=== PATIENT | male | born 2000 | race Caucasian/White ===

== ENCOUNTER 2023-03-31 10:07 | Outpatient (CLI) | payer OTHER, SELFPAY ==
[2023-03-31 10:44] LABS: Appearance Urine Clear (Clear); Bilirubin Urine Negative (Negative); Blood Urine Negative (Negative); Color Urine Yellow (Yellow); Glucose Urine UA Negative (Negative); Ketones Urine Negative (Negative); Leukocyte Esterase Ur Negative LEU/UL (NEGATIVE); Nitrate Urine Negative (Negative); Protein Urine Negative (Negative); Specific Grav Ur 1.009 (1.001-1.035); Urobilinogen Urine 0.2 mg/dL (<2.0)
[2023-03-31 10:56] LABS: Add Urine Microscopic? NO
[2023-03-31 11:18] LABS: Basophils Percent Auto 0.4 % (0.2-1.2); Eosinophils Absolute Auto 0.3 K/mm3 (0-0.3); Eosinophils Percent Auto 6.3 % (0-4.4); Hematocrit 45.9 % (42.0-52.0); Hemoglobin 15.2 g/dL (14.0-18.0); Immature Granulocyte Absolute 0.02 K/mm3 (0.00-0.031); Immature Granulocyte Percent A 0.4 % (0-0.5); Lymphocytes Absolute Auto 1.53 K/mm3 (0.9-3.2); Lymphocytes Percent Auto 33.5 % (18.3-44.2); Mean Corpuscular HGB Conc 33.1 g/dl (32-36); Mean Corpuscular Hemoglobin 29.5 pg (26-34); Mean Platelet Volume 10.1 fl (7.4-10.4); Monocytes Absolute Auto 0.3 K/mm3 (0.1-0.6); Monocytes Percent Auto 6.8 % (2.6-8.5); Neutrophils Absolute Auto 2.4 K/mm3 (1.3-6.7); Neutrophils Percent Auto 52.6 % (45.5-73.1); Platelet Count Result 213 k/mm3 (150-375); Red Blood Count 5.16 M/mm3 (4.6-6.20); Red Cell Distribution Width 11.7 % (11.5-14.5); White Blood Count 4.6 K/mm3 (4.5-10.0)
[2023-03-31 11:27] LABS: Alanine Aminotransferase 24 U/L (6-50); Albumin Level 5.1 g/dL (3.5-5.1); Alkaline Phosphatase 59 U/L (38-126); Anion Gap 9 mmol/L (8-16); Aspartate Amino Transferase 26 U/L (17-59); Bilirubin,Total 1.4 mg/dL (0.2-1.3); Blood Urea Nitrogen 16 mg/dL (9-20); Calcium 10.1 mg/dL (8.4-10.2); Carbon Dioxide 31 mmol/L (22-30); Chloride 103 mmol/L (98-107); Cholesterol 148 mg/dL (0-200); Estimated Glomerular Filt Rate > 60; Glucose 85 mg/dL (65-110); HDL Direct 59 mg/dL; Potassium 4.4 mmol/L (3.4-5.0); Sodium 143 mmol/L (137-145); Triglycerides 78 mg/dL (<150)
[2023-03-31 11:37] LABS: LDL Cholesterol Direct 71 mg/dL
== END 2023-03-31 10:08 | disposition home or self-care (01) ==
LOC: ANHLAB 10:09
PROVIDERS: PCP Nurse Practitioner Family; Visit Provider Nurse Practitioner Family
DX: Z13.0 Encounter for screening for diseases of the blood and blood-forming organs and certain disorders involving the immune mechanism (principal); Z13.228 Encounter for screening for other metabolic disorders; Z13.220 Encounter for screening for lipoid disorders; N45.1 Epididymitis
CPT/HCPCS: 36415; 80053; 80061; 81003; 85025; 87086

== ENCOUNTER → 2023-04-03 10:40 | Outpatient (CLI) | payer OTHER, SELFPAY ==
--- NOTE | ~2023-04-03 | US_ITS ---
EXAMINATION: US scrotum doppler DATE: 04/03/2023 11:08 INDICATION: Epididymitis, pain TECHNIQUE: Testicular sonogram utilizing grayscale and Doppler COMPARISON: None. FINDINGS: The right testis measures 4.3 x 2.4 x 3.5 cm. The left testis measures 4.6 x 2.4 x 3.3 cm. There is normal vascular flow to both testes. The right epididymis is normal with normal vascular bhaskar w. The left epididymis is mildly enlarged compared to the right. There are small cystic areas of the left epididymis. No definite abnormal associated vascularity is identified. There is a small left hyd rocele. IMPRESSION: 1. Mildly complex and enlarged left epididymis when compared to the right without increased vasculari ty. Findings could reflect cysts or spermatoceles are less likely infection. Clinical follow-up is re commended necessary. Reviewed, dictated and finalized at location B. DRIVER IMPRESSION: 1. Mildly complex and enlarged left epididymis when compared to the right witho ut increased vascularity. Findings could reflect cysts or spermatoceles are les s likely infection. Clinical follow-up is recommended necessary.
== END ==
PROVIDERS: PCP Nurse Practitioner Family; Visit Provider Nurse Practitioner Family
DX: N45.1 Epididymitis (principal)
CPT/HCPCS: 76870; 93976

== ENCOUNTER 2024-03-26 11:09 | Outpatient (CLI) | payer OTHER, SELFPAY ==
[2024-03-26 11:55] LABS: Hematocrit 46.2 % (42.0-52.0); Hemoglobin 15.9 g/dL (14.0-18.0); Mean Corpuscular HGB Conc 34.4 g/dl (32-36); Mean Corpuscular Hemoglobin 30.2 pg (26-34); Mean Corpuscular Volume 87.8 fl (80-100); Mean Platelet Volume 10.1 fl (7.4-10.4); Platelet Count Result 207 k/mm3 (150-375); Red Blood Count 5.26 M/mm3 (4.6-6.20); Red Cell Distribution Width 11.7 % (11.5-14.5); White Blood Count 4.6 K/mm3 (4.5-10.0)
[2024-03-26 11:57] LABS: Add Urine Microscopic? NO; Appearance Urine Clear (Clear); Bilirubin Urine Negative (Negative); Blood Urine Negative (Negative); Color Urine Yellow (Yellow); Glucose Urine UA Negative (Negative); Ketones Urine Negative (Negative); Leukocyte Esterase Ur Negative LEU/UL (Negative); Nitrate Urine Negative (Negative); Protein Urine Negative (Negative); Specific Grav Ur 1.007 (1.001-1.035); Urobilinogen Urine 0.2 mg/dL (<2.0); pH Urine 7.5 (5.0-9.0)
[2024-03-26 12:12] LABS: Alanine Aminotransferase 31 U/L (6-50); Albumin Level 5.2 g/dL (3.5-5.1); Alkaline Phosphatase 68 U/L (38-126); Anion Gap 6 mmol/L (4-12); Aspartate Amino Transferase 31 U/L (17-59); Bilirubin,Total 1.9 mg/dL (0.2-1.3); Blood Urea Nitrogen 13 mg/dL (9-20); Calcium 9.9 mg/dL (8.4-10.2); Carbon Dioxide 30 mmol/L (22-30); Chloride 102 mmol/L (98-107); Estimated Glomerular Filt Rate > 60; Glucose 94 mg/dL (65-110); Potassium 4.5 mmol/L (3.4-5.0); Sodium 138 mmol/L (137-145)
[2024-03-26 12:34] LABS: Hemoglobin A1C 5.4 % (<5.7)
== END 2024-03-26 11:10 | disposition home or self-care (01) ==
LOC: ANHLAB 11:11
PROVIDERS: PCP Nurse Practitioner Family; Visit Provider Nurse Practitioner Family
DX: R10.9 Unspecified abdominal pain (principal); Z00.00 Encounter for general adult medical examination without abnormal findings; M25.519 Pain in unspecified shoulder; M54.9 Dorsalgia, unspecified; Z13.0 Encounter for screening for diseases of the blood and blood-forming organs and certain disorders involving the immune mechanism; Z68.29 Body mass index [BMI] 29.0-29.9, adult; Z13.1 Encounter for screening for diabetes mellitus; Z13.29 Encounter for screening for other suspected endocrine disorder; R00.1 Bradycardia, unspecified; Z13.228 Encounter for screening for other metabolic disorders
CPT/HCPCS: 36415; 80053; 81003; 83036; 84443; 85027; 87086

== ENCOUNTER 2024-05-14 12:47 | Outpatient (CLI) | payer OTHER, SELFPAY ==
--- OUTSIDE RECORDS SUMMARY | 2024-05-14 13:23 | XMS_ITS | Continuity of Care Document ---
Author Organization [facility] Address [address] [place] [address] Phone Care Team Providers Care Paper Folding Machine Operator Name Role Phone Walter Marin MD Unavailable Unavailable Allergies, Adverse Reactions, Alerts Substance Reaction Status Criticality No Known allergies Medications Medication Instructions Dosage Effective Dates (start - stop) Status Comments fluticasone 50 mcg/actuation Nasal Paden, Susp spray 1 - 2 spray (50MCG) by intranasal route every day in each nostril 50 MCG - Active VENTOLIN HFA 90 MCG INHALER inhale 2 puff by inhalation route 4 - 6 hours as needed - Active cetirizine 10 mg Tab take 1 tablet (10MG) by oral route every day 10 MG - Active AEROCHAMBER WITH FLOWSIGNAL E 0 DIRECTE 50 MCG - Active VENTOLIN HFA 90 MCG INHALER inhale 2 puff by inhalation route 4 - 6 hours as needed - No Longer Active NASONEX 50 MCG NASAL SPRAY spray 1 spray by intranasal route every day in each nostril 1 spray - No Longer Active Advance Directives Directive Yes / No Effective Date File Name Resuscitation Not Answered N/A N/A Life Support Not Answered N/A N/A Intubation Not Answered N/A N/A Antibiotics Not Answered N/A N/A IV Fluid Support Not Answered N/A N/A Tube Feed Not Answered N/A N/A Other Directive N/A N/A WARNING:The information contained in this section is historical and is provided for information only and does not constitute a legal document or any assurance that the information is still accurate. Please verify the information with the reardon of the legal document before using it for clinical purposes. Encounters Encounter Description Practice Location Reason(s) For Visit Diagnoses Date Provider Providers Copied on Encounter [facility], [address], [place], [place], [id number] , tel: [phone] [facility] asthma (chief complaint) rhinitis (chief complaint) INTRINSIC ASTHMA, UNSPECIFIEDChroni c rhinitis 2 Tomas Watson. [address], [id number], . tel:[phone] Referring Provider: Susana Graves [address] [place] [address], [place], [place], [facility]. [phone] [facility], [address], [place], [place], [id number] , tel: [phone] [facility] INTRINSIC ASTHMA, UNSPECIFIEDNON-AL LERGIC RHINITISNEED FOR PROPHYLACTIC VACCINATION AND INOCULATION, INFLUENZA 1 Tomas Watson. [address] [place] [address], [id number], . tel:[phone] Referring Provider: Susana Graves [address] [place] [address], [place], [address]. tel:[phone] [facility], [address], [place], [place], [id number] , tel: [phone] [facility] INTRINSIC ASTHMA, UNSPECIFIEDNASAL & SINUS DIS NEC 1 Tomas Watson. [address], [id number], [place]. [phone] Referring Provider: Filomena Agarwal[address] [place] [address], [place], [address]. tel:[phone] [facility], [address], [place], [place], [id number] , tel: [phone] Conversion Department No Information 1 Conversion Doctor. [facility] Rehana Lemus, [place], [address], [place]. [facility], [address], [place], [place], [id number] , tel: [phone] [facility] INT ASTHMA W (AC) EXAC 0 Tomas Watson. [address] [place] [address], [id number], . [phone] [facility], [address], [place], [place], [id number] , tel: [phone] [facility] INTRINSIC ASTHMA NOS 0 Tomas Watson. [address], [id number], . tel:[phone] Family History Family Member Type Diagnosis Age At Onset No Information Immunizations Vaccine Date Status Comments Flu (split) (3 yrs or older) administered Source: New Immunization Record Flu (split) (3 yrs or older) administered Source: New Immunization Record Payers Payer name Insurance type Covered alliance party ID Taylor orozco(s) [facility] [id number] Social History Type Description Quantity Date Captured Comments Alcohol Use Details Unknown Caffeine Use Details Unknown Tobacco Use Status No Information Smoking Status Never smoker Sex Male Vital Signs Date / Time: Height Weight BMI Pulse Rate Blood Pressure Temperature Respiratory Rate Body Surface Area Head Circumference Head Circ. Percentile Wt./Carlos Manuel. Percentile BMI percentile Pulse Ox Inhaled Ox 4:31 PM 65.00 in 117.00 lbs 19.4 7 kg/m eter (2) 118/72 mm[Hg] 62 Chief Complaint And Reason For Visit From encounter dated '01/30/2012 16:00'. asthma (chief complaint) rhinitis (chief complaint) Reason For Referral Reason For Referral No Information History Of Present Illness Encounter Date Complaint History Of Prese nt Illness No Information Functional Status Date Functional Assessmen t No Information Instructions Date Instruction Additional Infor mation No Information Assessments Type Assessment Date No Information Patient Care Teams Name Effective Dates (start - stop) Status Members No Information
--- OUTSIDE RECORDS SUMMARY | 2024-05-14 13:23 | XMS_ITS | Patient Health Summary ---
Author Organization [facility] Address [address] [facility] [place] [address] Care Team Providers Care Intelligence Intern Name Role Phone Lynette Alberto MD Unavailable [phone] Lynette Alberto MD Primary Care Provider [phone] [facility],non-owned Affiliates and Associated Physician Practices is amultiple site organization consisting of ambulatory clinics and hospital sitesin [place] and [place]. This disclosure is being madepursuant to the Care Everywhere program and may not contain all information available regarding this patient. Last updated 18.[facility] Allergies * Augmentin(Diarrhea) * Ceftin(VOMITING) Medications * Be aware that medications may not be up to date on this document. Alwaysverify current medications with the patient. * albuterol (PROVENTIL; VENTOLIN) 90 MCG/ACT inhaler Inhale 2 Puffs by mouth every 6 hours as needed Reported on 05/30/2016 * Cetirizine HCl (ZYRTEC PO) * adapalene-benzoyl peroxide (EPIDUO) 0.1-2.5 % gel(Started 04/19/2018) Apply to affected area at bedtime 2 refills remaining * doxycycline hyclate (PERIOSTAT) 20 MG tablet(Started 04/19/2018) Take 1 tablet by mouth 2 times daily 2 refills remaining * benzoyl peroxide-erythromycin (BENZAMYCIN) 5-3 % gel(Started 04/20/2018) Apply to affected area 2 times daily 1 refill remaining Active Problems Problem Noted Date Diagnosed Date Asthma, moderate persistent 10/19/2010 Allergic rhinitis 08/18/2010 Acne 08/18/2010 Resolved Problems Problem Noted Date Diagnosed Date Resolved Date Acute otitis media 08/18/2010 1 Immunizations * DTaP VACCINE IM (6wk-6yrs)(Given 08/11/2003, 05/25/2000, 05/25/1999, 03/23/1999, 01/19/1999) * HEP A PEDS 2 DOSE(Given 09/21/2009, 11/20/2006) * HEP B VACCINE, PED/ADOL(Given 05/25/2000, 08/24/1999, 05/25/1999) * HIB BOOSTER(Given 05/25/2000, 05/25/1999, 03/23/1999, 01/19/1999) * Human Papilloma Virus Quadrivalent Vaccine(Given 11/08/2013, 12/08/2012, 10/01/2012) * INFLUENZA VACCINE, QUADR. (FLUZONE; FLULAVAL; FLUARIX; AFLURIA QUADRIVALENT; 6MO+), 0.5 ML (IIV4)(Given 02/22/2013) * MENINGOCOCCAL CONJUGATE (MCV4P)(Given 09/30/2015, 10/01/2012) * MMR(Given 08/11/2003, 11/24/1999) * POLIO IPV(Given 08/11/2003, 02/24/2000, 03/23/1999, 01/19/1999) * PPD(Given 08/11/2003, 11/24/1999) * TDAP (7yrs+)(Given 09/21/2009) * VARICELLA(Given 11/20/2006, 02/24/2000) Social History Tobacco Use Types Packs/Day Years Used Date Smoking Tobacco: Never Smokeless Tobacco: Never Alcohol Use Standard Drinks/Week Comments Not Asked 0 (1 standard drink = 0.6 oz pur e alcohol) Sex and Gender Information Value Date Recorded Sex Assigned at Not on file Gender Identity Not on file Sexual Orientation Not on file Last Filed Vital Signs Vital Sign Reading Time Taken Comments Blood Pressure 114/76 09/30/2015 9:27 AM CDT Pulse 54 09/30/2015 9:27 AM CDT Temperature 36.2 ??C (97.2 ??F) 04/19/2018 10:[address] Respiratory Rate 12 06/21/2011 8:51 AM VOICE SYSTEMS ENGINEER Oxygen Saturation 98% 05/31/2012 9:53 AM VOICE SYSTEMS ENGINEER Inhaled Oxygen Concentration - - Weight 87.5 kg (193 lb) 04/19/2018 10:27 AM VOICE SYSTEMS ENGINEER Height 174 cm (5' 8.5 ) 09/30/2015 9:27 AM CDT Body Mass Index - - Procedures * PATHOLOGY REPORT(Performed 08/30/2017) * XR ANKLE LEFT 3VW OR MORE(Performed 07/21/2012) * XR FEMUR LEFT 2VW(Performed 11/07/2011) Performed for Thigh pain * EVENT MONITOR(Performed 07/28/2011) * XR HAND RIGHT 3VW OR MORE(Performed 07/11/2011) Performed for Finger fracture, right * XR HAND RIGHT 2VW(Performed 06/28/2011) Performed for Injury of third finger, right * ECHO CONSULT - PEDIATRIC(Performed 06/21/2011) Performed for Palpitations * EKG 12-LEAD(Performed 05/25/2011) Performed for Chest pain at rest, Palpitations * XR WRIST LEFT 3VW OR MORE(Performed 02/01/2011) * CULTURE THROAT(Performed 07/15/2010) * INFLUENZA A+B - POINT OF CARE (AMB)(Performed 07/15/2010) Performed for Influenza * STREP A SCREEN - POINT OF CARE (AMB)(Performed 07/15/2010) Performed for Sore throat * URINALYSIS - POINT OF CARE(Performed 09/21/2009) Performed for Routine Infant or Child Health Check Results * PATHOLOGY REPORT (08/30/2017) Ge Burnham MD LAB - PATHOLOGY/C YTOLOGY ORDERABLES * XR ANKLE 3+ VW LEFT (07/21/2012) Anatomical Region Laterality Modality Lower Extremity Other Emergency Physician DIAGNOSTIC IMAGING O RDERABLES * XR FEMUR 2 VW LEFT (11/07/2011) Anatomical Region Laterality Modality Lower Extremity Other Lynette Alberto MD DIAGNOSTIC IMAGING O RDERABLES * EVENT MONITOR (07/28/2011) Charlie Gann MD CARDIAC SERVIC ES ORDERABLES * XR HAND RIGHT 3+ VW MP (07/11/2011) Anatomical Region Laterality Modality Wrist / Hand Other Lynette Alberto MD DIAGNOSTIC IMAGING O RDERABLES * XR HAND 2 VW RIGHT (06/28/2011) Anatomical Region Laterality Modality Wrist / Hand Other Lynette Alberto MD DIAGNOSTIC IMAGING O RDERABLES * ECHO CONSULT - PEDIATRIC (06/21/2011 9:16 AM VOICE SYSTEMS ENGINEER) 06/21/2011 9:16 AM VOICE SYSTEMS ENGINEER Narrative [facility] - 06/21/2011 10:03 AM VOICE SYSTEMS ENGINEER , Transthoracic Echocardiogram 2D, M-mode, Doppler, and Color Doppler Name: JESSICA STEEL MR #: [id number] Study date: 06/21/2011 Age: 10 years 10 years : 2000 Gender: Male Ht: 63.4 in 63.4 in / 161 cm 161 cm Wt: 112.2 lb 112.2 lb / 51 kg 51 kg BSA: 1.52 m?? 1.52 m?? HR: BP: / age: TEOFILO: Maternal age: MIRROR MACHINE FEEDER: ??Charlie Gann MD PEDIATRIC ECHO CHIEF INFORMATION OFFICER: ??MAT Ybarra History: Signs/symptoms include palpitations and murmur. Procedure: The procedure was performed in the echo lab. Anatomic relationships: Visceral situs: normal. Left sided cardiac apex (levocardia). Normal atrial situs (atrial situs solitus). Concordant atrioventricular alignment. Ventricular d-loop. Normal infundibular anatomy. Concordant ventriculoarterial connection. Normally related great vessels. Systemic veins: SVC: The superior vena cava and left innominate vein appeared of normal caliber, with normal flow. IVC: The inferior vena cava was normal in size and course. IVC Doppler: The flow pattern was normal. Pulmonary veins: The pulmonary veins drained normally to the left atrium. Doppler: Doppler flow pattern was normal in the pulmonary vein(s). Right atrium: Size was normal. Left atrium: Size was normal. Atrial septum: No defect or patent foramen ovale was identified. Tricuspid valve: The valve structure was normal. Doppler: The transtricuspid velocity was within the normal range. There was no evidence for tricuspid stenosis. There was trivial regurgitation. Mitral valve: Valve structure was normal. There is no mitral valve prolapse. Doppler: The transmitral velocity was within the normal range. There was no evidence for stenosis. There was no regurgitation. Right ventricle: The cavity size was normal. Wall thickness was normal. Systolic function was normal. RV outflow tract: There was no obstruction. Left ventricle: The cavity size was normal. Wall thickness was normal. Systolic function was normal. There were no regional wall motion abnormalities. Doppler: Left ventricular diastolic function parameters were normal. LV outflow tract: There was no outflow obstruction. Ventricular septum: Thickness was normal. The septum was intact. Pulmonic valve: Leaflets exhibited normal thickness and normal cuspal separation. Doppler: The transpulmonic velocity was within the normal range. Aortic valve: The valve was trileaflet. Leaflets exhibited normal thickness and normal cuspal separation. Doppler: Transaortic velocity was within the normal range. There was no stenosis. There was no regurgitation. Pulmonary artery: The main pulmonary artery was normal, with normal-sized, confluent proximal branch pulmonary arteries. Aorta: There was a normal-sized aortic arch with normal brachiocephalic branching. The root was normal in size. The ascending aorta size was normal. Coronary arteries: The size and course of the left main, proximal left anterior descending, and proximal right coronary arteries were normal. Right coronary artery: Flow was normal. Left main coronary artery: Flow was normal. Left anterior descending: Flow was normal. Extracardiac shunting: No ductal shunt was detected by Doppler. Pericardium: There was no pericardial effusion. The pericardium was normal in appearance. Impressions: - ??Diagnoses: Normal echocardiogram. Prepared and signed by Charlie Gann MD Signed 06/21/2011 10:06:16 System measurement tables MM %FS: 38.9 % Ao Diam: 24.5 mm EDV(Teich): 121.2 ml EF(Teich): 69.1 % ESV(Teich): 37.5 ml IVSd: 6.9 mm IVSs: 10.1 mm LA Diam: 28.2 mm LA/Ao: 1.2 LVIDd: 50.5 mm LVIDs: 30.9 mm LVPWd: 6.9 mm LVPWs: 12.8 mm LVd Mass: 129.5 g LVd Mass (ASE): 115.1 g LVd Mass Ind (ASE): 75.7 g/m2 LVd Mass Index: 85.2 g/m2 LVs Mass: 117.1 g LVs Mass (ASE): 105.2 g LVs Mass Ind (ASE): 69.2 g/m2 LVs Mass Index: 77.1 g/m2 SV(Teich): 83.7 ml Procedure Note 06/21/2011 , Transthoracic Echocardiogram 2D, M-mode, Doppler, and Color Doppler Name: JESSICA STEEL MR #: [id number] Study date: 06/21/2011 Age: 10 years 10 years : 2000 Gender: Male Ht: 63.4 in 63.4 in / 161 cm 161 cm Wt: 112.2 lb 112.2 lb / 51 kg 51 kg BSA: 1.52 m?? 1.52 m?? HR: BP: / age: TEOFILO: Maternal age: MIRROR MACHINE FEEDER: Charlie Gann MD PEDIATRIC ECHO CHIEF INFORMATION OFFICER: MAT Ybarra History: Signs/symptoms include palpitations and murmur. Procedure: The procedure was performed in the echo lab. Anatomic relationships: Visceral situs: normal. Left sided cardiac apex (levocardia). Normal atrial situs (atrial situs solitus). Concordant atrioventricular alignment. Ventricular d-loop. Normal infundibular anatomy. Concordant ventriculoarterial connection. Normally related great vessels. Systemic veins: SVC: The superior vena cava and left innominate vein appeared of normal caliber, with normal flow. IVC: The inferior vena cava was normal in size and course. IVC Doppler: The flow pattern was normal. Pulmonary veins: The pulmonary veins drained normally to the left atrium. Doppler: Doppler flow pattern was normal in the pulmonary vein(s). Right atrium: Size was normal. Left atrium: Size was normal. Atrial septum: No defect or patent foramen ovale was identified. Tricuspid valve: The valve structure was normal. Doppler: The transtricuspid velocity was within the normal range. There was no evidence for tricuspid stenosis. There was trivial regurgitation. Mitral valve: Valve structure was normal. There is no mitral valve prolapse. Doppler: The transmitral velocity was within the normal range. There was no evidence for stenosis. There was no regurgitation. Right ventricle: The cavity size was normal. Wall thickness was normal. Systolic function was normal. RV outflow tract: There was no obstruction. Left ventricle: The cavity size was normal. Wall thickness was normal. Systolic function was normal. There were no regional wall motion abnormalities. Doppler: Left ventricular diastolic function parameters were normal. LV outflow tract: There was no outflow obstruction. Ventricular septum: Thickness was normal. The septum was intact. Pulmonic valve: Leaflets exhibited normal thickness and normal cuspal separation. Doppler: The transpulmonic velocity was within the normal range. Aortic valve: The valve was trileaflet. Leaflets exhibited normal thickness and normal cuspal separation. Doppler: Transaortic velocity was within the normal range. There was no stenosis. There was no regurgitation. Pulmonary artery: The main pulmonary artery was normal, with normal-sized, confluent proximal branch pulmonary arteries. Aorta: There was a normal-sized aortic arch with normal brachiocephalic branching. The root was normal in size. The ascending aorta size was normal. Coronary arteries: The size and course of the left main, proximal left anterior descending, and proximal right coronary arteries were normal. Right coronary artery: Flow was normal. Left main coronary artery: Flow was normal. Left anterior descending: Flow was normal. Extracardiac shunting: No ductal shunt was detected by Doppler. Pericardium: There was no pericardial effusion. The pericardium was normal in appearance. Impressions: - Diagnoses: Normal echocardiogram. Prepared and signed by Charlie Gann MD Signed 06/21/2011 10:06:16 System measurement tables MM %FS: 38.9 % Ao Diam: 24.5 mm EDV(Teich): 121.2 ml EF(Teich): 69.1 % ESV(Teich): 37.5 ml IVSd: 6.9 mm IVSs: 10.1 mm LA Diam: 28.2 mm LA/Ao: 1.2 LVIDd: 50.5 mm LVIDs: 30.9 mm LVPWd: 6.9 mm LVPWs: 12.8 mm LVd Mass: 129.5 g LVd Mass (ASE): 115.1 g LVd Mass Ind (ASE): 75.7 g/m2 LVd Mass Index: 85.2 g/m2 LVs Mass: 117.1 g LVs Mass (ASE): 105.2 g LVs Mass Ind (ASE): 69.2 g/m2 LVs Mass Index: 77.1 g/m2 SV(Teich): 83.7 ml Charlie Gann MD ECHO ORDERABLE S Performing Organization Address City/[facility]/ZIP Co de Phone Number [facility] [address] [place] [address] * EKG 12-LEAD (05/25/2011) Susana Graves MD ECG ORDERABLES * XR WRIST 3+ VW LEFT (02/01/2011) Anatomical Region Laterality Modality Wrist / Hand Other Emergency Physician DIAGNOSTIC IMAGING O RDERABLES * CULTURE THROAT (07/15/2010 10:54 AM CDT) Upper Respiratory Culture Final report [facility] INSURANCE BILL Result 1 [facility] INSURANCE BILL Comment:Routine respiratory litzy ENTIRE THROAT (SURFACE REGION OF NECK) / Unknown 07/15/2010 10:54 AM CDT 07/15/2010 10:06 PM CDT Narrative Resulting Agency Comment [facility] [facility] [phone] Susana Graves MD LAB - MICROBIOLOGY O RDERABLES Performing Organization Address City/[facility] Co de Phone Number [facility] INSURANCE BILL * STREP A SCREEN - POINT OF CARE (AMB) (07/15/2010 10:39 AM CDT) Strep A Rapid POCT negative NEGATIVE - POSITVE Strep A Internal Control NEGATIVE - POSITIVE Nasal mucus (substance) ENTIRE THROAT (SURFACE REGION OF NECK) / Unknown 07/15/2010 10:39 AM CDT Susana Graves MD LAB - POINT OF CARE ORDERABLES * (ABNORMAL) INFLUENZA A+B - POINT OF CARE (07/15/2010 10:39 AM CDT) Influenza A Antigen Rapid positive Negative Influenza B Antigen Rapid Negative Influenza Internal Control NEGATIVE - POSITIVE Influenza Lot Number Influenza Expiration Date Nasal mucus (substance) SPECIMEN FROM NASOPHARYNGEAL STRUCTURE / Unknown 07/15/2010 10:39 AM CDT Susana Graves MD LAB - POINT OF CARE ORDERABLES * URINALYSIS - POINT OF CARE (09/21/2009 10:05 AM CDT) Clarity UA POCT clear Color UA POCT harsh Leukocyte UA neg Negative Nitrite UA POCT neg Negative Urobilinogen UA POCT neg 0.1 - 1.0 EU/dL Protein UA POCT neg Negative pH UA 7 5.0 - 8.0 pH units Blood UA neg Negtive Specific Marshall UA POCT 1.005 1.002 - 1.030 Ketone UA neg Negative Bilirubin UA POCT neg Negative Glucose UA neg Negative Urine specimen (specimen) URINE / Unknown Susana Graves MD LAB - POINT OF CARE ORDERABLES Care Teams Intelligence Intern Relationship Specialty Start Date End Date Lynette Alberto MD PCP - Pediatrics 05/04/09 Lynette Alberto MD PCP - General Pediatrics 04/19/18
--- OUTSIDE RECORDS SUMMARY | 2024-05-14 13:23 | XMS_ITS | Clinical Summary ---
Author Organization [facility] Address [address] [place] [address] Care Team Providers Care Decorating Supervisor Name Role Phone Lynette Alberto MD Unavailable [phone] Lynette Alberto MD Primary Care Provider [phone] Source Comments [facility],non-owned Affiliates and Associated Physician Practices is amultiple site organization consisting of ambulatory clinics and hospital sitesin [place], [place], [place] and [place]. This disclosure is being madepursuant to the Care Everywhere program and may not contain all information available regarding this patient. Last updated 18.[facility] Allergies Active Allergy Reactions Criticality Noted Date Comments Augmentin Diarrhea 09/18/2009 Ceftin 09/18/2009 VOMITING Medications * Be aware that medications may not be up to date on this document. Alwaysverify current medications with the patient. Medication Sig Dispensed Refills Start Date End Date Status albuterol (PROVENTIL; VENTOLIN) 90 MCG/ACT inhaler Inhale 2 Puffs by mouth every 6 hours as needed Reported on 05/30/2016 Active Cetirizine HCl (ZYRTEC PO)Indications:Routi ne infant or child health check Active adapalene-benzoyl peroxide (EPIDUO) 0.1-2.5 % gel Apply to affected area at bedtime 45 g 2 04/19/2018 Active doxycycline hyclate (PERIOSTAT) 20 MG tablet Take 1 tablet by mouth 2 times daily 60 tablet 2 04/19/2018 Active benzoyl peroxide-erythromyci n (BENZAMYCIN) 5-3 % gel Apply to affected area 2 times daily 46.6 g 1 04/20/2018 Active Active Problems Problem Noted Date Diagnosed Date Asthma, moderate persistent 10/19/2010 Allergic rhinitis 08/18/2010 Acne 08/18/2010 Resolved Problems Problem Noted Date Diagnosed Date Resolved Date Acute otitis media 08/18/2010 1 Immunizations Name Administration Dates Next Due DTaP VACCINE IM (6wk-6yrs) 08/11/2003,,05/25/1999,03/23,01/19/1999 HEP A PEDS 2 DOSE 09/21/2009,11/20/2006 HEP B VACCINE, PED/ADOL 05/25/2000,08/24/1999, HIB BOOSTER 05/25/2000, 0,03/23/1999,01/19 Human Papilloma Virus Salty valent Vaccine 11/08/2013,12/08/2012,10/01/2012 INFLUENZA VACCINE, QUADR. (F LUZONE; FLULAVAL; FLUARIX; AFLURIA QUADRIVALENT; 6MO+), 0.5 ML (IIV4) 02/22/2013 MENINGOCOCCAL CONJUGATE (MCV4P) 09/30/2015,10/01 MMR 08/11/2003,11/24/1999 POLIO IPV 08/11/2003, 0,03/23/1999,01/19 PPD 08/11/2003,11/24/1999 TDAP (7yrs+) 09/21/2009 VARICELLA 11/20/2006,02/24/2000 Social History Tobacco Use Types Packs/Day Years [...] ST Respiratory Rate 12 06/21/2011 8:51 AM CHIEF WARDEN Oxygen Saturation 98% 05/31/2012 9:53 AM CHIEF WARDEN Inhaled Oxygen Concentration - - Weight 87.5 kg (193 lb) 04/19/2018 10:27 AM CHIEF WARDEN Height 174 cm (5' 8.5 ) 09/30/2015 9:27 AM CDT Body Mass Index - - Plan of Treatment Health Maintenance Due Date Last Done Comments HIV SCREENING 2013 HEPATITIS C SCREENING 11/14/2016 PNEUMOCOCCAL VACCINE (1 of 2 - PCV) 2017 DTAP/TDAP/TD VACCINES (7 - Td or Tdap) 09/22/2019 09/21/2009, 08/11/2003, 05/25/2000, Additional history exists COVID-19 VACCINE () 12/17/2023 INFLUENZA VACCINE (#1) 2023 02/22/2013 DEPRESSION SCREENING 04/17/2024 ZOSTER VACCINE (1 of 2) 2048 HEPATITIS B VACCINE Completed 05/25/2000, 08/24/1999, 05/25/1999 HIB VACCINE Completed 05/25/2000, 11/1999, 03/23/1999, Additional history exists HPV VACCINE Completed 11/08/2013, 11/16, 10/01/2012 MENINGOCOCCAL VACCINE Completed 09/30/2015, 013 MENINGOCOCCAL (Group B) VACCINE Aged Out No longer eligible based on patient's age to complete this topic Goals Goal Patient Goal Type Associated Problems Recent Progress Patient-Stated? Author Use safety retraint in car Lifestyle On track( 019 10:27 AM CHIEF WARDEN) Joann Sanon RN Care Teams Decorating Supervisor Relationship Specialty Start Date End Date Lynette Alberto MD PCP - Pediatrics 05/04/09 Lynette Alberto MD PCP - General Pediatrics 04/19/18
--- OUTSIDE RECORDS SUMMARY | 2024-05-14 13:23 | XMS_ITS | Clinical Summary ---
Author Organization 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 Gender Identity Not on file Sexual Orientation Not on file Plan of Treatment Health Maintenance Due Date Last Done Comments Hepatitis C Virus (HCV) Screening 1998 TdaP Immunization 1998 Hepatitis B Immunization (1 of 3 - 19+ 3-dose series) 2017 Influenza Immunization (#1) 2023 02/22/2013 SARS-COV-2 Immunization ( season) 2023 Respiratory Syncytial Virus (RSV) Immunization (Adult) (1 - 1-dose 75+ series) 2073 Human Papillomavirus (HPV) Immunization Completed 11/08/2013, 12/08/2012, 10/01/2012 Meningococcal Immunization (ACWY) Completed 09/30/2015, 10/01/2012 Pneumococcal Immunization Combined Aged Out No longer eligible b ased on patient's age to complete this topic Rotavirus Immunization Aged Out No lo nger eligible based on patient's age to complete this topic Insurance [employer] on file
--- OUTSIDE RECORDS SUMMARY | 2024-05-14 13:23 | XMS_ITS | Referral Summary ---
Author Organization [facility] Address [address] [place] [address] Care Team Providers Care Dried Fruit Washer Name Role Phone Lynette Alberto MD Unavailable [phone] Lynette Alberto MD Primary Care Provider [phone] Source Comments [facility],non-owned Affiliates and Associated Physician Practices is amultiple site organization consisting of ambulatory clinics and hospital sitesin [place], [place], [place]. This disclosure is being madepursuant to the Care Everywhere program and may not contain all information available regarding this patient. Last updated 18.[facility] Allergies Active Allergy Reactions Criticality Noted [...] ST Respiratory Rate 12 06/21/2011 8:51 AM PUMP MACHINE OPERATOR Oxygen Saturation 98% 05/31/2012 9:53 AM PUMP MACHINE OPERATOR Inhaled Oxygen Concentration - - Weight 87.5 kg (193 lb) 04/19/2018 10:27 AM PUMP MACHINE OPERATOR Height 174 cm (5' 8.5 ) 09/30/2015 9:27 AM CDT Body Mass Index - - Plan of Treatment Not on file Goals Goal Patient Goal Type Associated Problems Recent Progress Patient-Stated? Author Use safety retraint in car Lifestyle On track( 019 10:27 AM PUMP MACHINE OPERATOR) Joann Sanon, ALVARO Care Teams Dried Fruit Washer Relationship Specialty Start Date End Date Lynette Alberto MD PCP - Pediatrics 05/04/09 Lynette Alberto MD PCP - General Pediatrics 04/19/18
[2024-05-14 14:13] LABS: Strep Group A RT-PCR NOT DETECTED (Negative)
[2024-05-14 14:24] LABS: Influenza A QL RT-PCR Positive (Negative); Influenza B QL RT-PCR Negative (Negative); RSV RNA, RT-PCR Negative (Negative); SARS-CoV-2 RNA PCR Negative (Negative)
== END 2024-05-14 12:48 | disposition home or self-care (01) ==
LOC: ANHLAB 12:49
PROVIDERS: PCP Nurse Practitioner Family; Visit Provider Nurse Practitioner Family
DX: R05.9 Cough, unspecified (principal); J02.9 Acute pharyngitis, unspecified; Z20.822 Contact with and (suspected) exposure to COVID-19
CPT/HCPCS: 87637; 87651